=== PATIENT | female | born 1985 | race Two or more races ===

== ENCOUNTER 2024-01-06 10:50 | Emergency (ER) | payer MEDICAID ==
[~2024-01-06] VITALS: Ht 154.9 cm; Wt 80.0 kg
[2024-01-06 11:04] VITALS: BP 137/57; RESP 18; O2SAT 97
[2024-01-06 11:20] LABS: Basophils # (auto) 0.1 10 ^3/uL (0-0.2); Basophils % (auto) 0.9 % (0.0-2.0); Eosinophils # (auto) 0 10 ^3/uL (0-0.8); Eosinophils % (auto) 0.5 % (0.0-7.0); Hematocrit 42.8 % (36.0-46.0); Hemoglobin 14.8 g/dL (12.2-16.2); Lymphocytes # (auto) 1.3 10 ^3/uL (0.4-5.4); Lymphocytes % (auto) 16.8 % (10.0-50.0); Mean Corpuscular Hemoglobin 30.8 pg (28.0-32.0); Mean Corpuscular Hgb Conc. 34.6 g/dL (32.0-36.0); Mean Corpuscular Volume 89.1 fL (80.0-100.0); Monocytes # (auto) 0.6 10 ^3/uL (0-1.3); Monocytes % (auto) 7.2 % (0.0-12.0); Neutrophils # (auto) 5.9 10 ^3/uL (1.6-8.6); Neutrophils % (auto) 74.6 % (37.0-80.0); Platelet Count (auto) 298 10^3/uL (140-450); Red Blood Cells 4.81 10^6/uL (4.0-5.20); Red Cell Distribution Width 13.9 % (11.8-14.3); White Blood Cell 7.9 10^3/uL (4.4-10.8)
[2024-01-06 11:50] LABS: Alanine Aminotransferase 26 U/L (7-40); Albumin 4.7 g/dL (3.2-4.8); Alkaline Phosphatase 67 U/L (46-116); Anion Gap 7 (5-15); Aspartate Aminotransferase 20 U/L (13-40); BUN/Creatinine Ratio 8.7 (10.0-20.0); Blood Urea Nitrogen 6 mg/dL (9-23); Calcium 9.9 mg/dL (8.7-10.4); Carbon Dioxide 23 mmol/L (20-30); Chloride 109 mmol/L (98-107); Glucose 117 mg/dL (74-106); Potassium 3.9 mmol/L (3.5-5.1); Sodium 139 mmol/L (136-145)
[2024-01-06 11:51] LABS: Bilirubin, Total 0.8 mg/dL (0.2-1.0); Total Protein 8.1 g/dL (5.7-8.2)
[2024-01-06 11:52] VITALS: PULSE 73
== END 2024-01-06 12:58 | disposition home or self-care (01) ==
LOC: ER 10:50
DX: R07.89 Other chest pain (principal); R51.9 Headache, unspecified
CPT/HCPCS: 36415; 71046; 80053; 84484; 85025; 85379; 93005

== ENCOUNTER 2024-05-13 09:09 | Emergency (ER) | payer MEDICAID ==
[~2024-05-13] VITALS: Ht 157.5 cm; Wt 79.0 kg
[2024-05-13 09:20] VITALS: BP 131/59; PULSE 80; RESP 18; O2SAT 98
--- NOTE | 2024-05-13 09:41 | ED.PDOC ---
HPI Comments 38 year old female presents to the ED with a chief complaint of chest pain onset 3 days. Patient states she has been experiencing chest pain, numbness/tingling of bilateral upper and lower extremitas, nausea, vomiting, generalized weakness, shortness of breath for the past 3 days. Patient denies any PMHx. No other symptoms or modifying factors present at this time. 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 History Family History Family History: Family hx of DM, Family hx of Cancer, Family hx of HTN Social History Smoker: Non-Smoker Alcohol: Denies ETOH Use Drugs: Marijuana Lives In: Home Constitutional: reports: fatigue, weakness; denies: chills, diaphoresis, fever, malaise, sweats, others EENTM: denies: blurred vision, double vision, ear bleeding, ear discharge, ear drainage, ear pain, ear ringing, eye pain, eye redness, hearing loss, mouth pain, mouth swelling, nasal discharge, nose bleeding, nose congestion, nose pain, photophobia, tearing, throat pain, throat swelling, voice changes, others Respiratory: reports: shortness of breath; denies: cough, hemoptysis, orthopnea, SOB at rest, SOB with excertion, stridor, wheezing, others Cardiovascular: reports: chest pain, palpitations; denies: dizzy spells, diaphoresis, Dyspnea on exertion, edema, irregular heart beat, left arm pain, lightheadedness, PND, syncope, others Gastrointestinal: reports: nausea, vomiting; denies: abdomen distended, abdominal pain, blood streaked bowels, constipated, diarrhea, dysphagia, difficulty swallowing, hematemesis, melena, poor appetite, poor fluid intake, rectal bleeding, rectal pain, others Genitourinary: denies: abnormal vagina bleeding, burning, dyspareunia, dysuria, flank pain, frequency, hematuria, incontinence, pain, , vagina discharge, urgency, others Neurological: reports: numbness; denies: dizziness, fainting, headache, left sided numbness, left sided weakness, paresthesia, pre-existing deficit, right sided numbness, right sided weakness, seizure, speech problems, tingling, tremors, weakness, others Musculoskeletal: denies: back pain, gout, joint pain, joint swelling, muscle pain, muscle stiffness, neck pain, others Integumetry: denies: bruises, change in color, change in hair/nails, dryness, laceration, lesions, lumps, rash, wounds, others Allergic/Immunocompromised: denies: Difficulty Healing, Frequent Infections, Hives, Itching, others Hematologic/Lymphatic: denies: anemia, blood clots, easy bleeding, easy bruising, swollen glands, others Endocrine: denies: excessive hunger, excessive sweating, excessive thirst, excessive urination, flushing, intolerance to cold, intolerance to heat, unexplained weight gain, unexplained weight loss, others Psychiatric: denies: anxiety, bipolar disorder, depression, hopeless, panic disorder, schizophrenia, sleepless, suicidal, others All Other Systems: Reviewed and Negative Physical Exam General Appearance: Mild Distress HEENT: Normal ENT Inspection, Pharynx Normal, TMs Normal Neck: Full Range of Motion, Non-Tender, Normal, Normal Inspection Respiratory: Chest Non-Tender, Lungs Clear, No Accessory Muscle Use, No Respiratory Distress, Normal Breath Sounds Cardiovascular: No Edema, No JVD, No Murmur, No Gallop, Normal Peripheral Pulses, Regular Rate/Rhythm Breast Exam: Deferred Gastrointestinal: No Organomegaly, Non Tender, No Pulsatile Mass, Normal Bowel Sounds, Soft Genitalia: Deferred Pelvic: Deferred Rectal: Deferred Extremities: No calf tenderness, Normal capillary refill, Normal inspection, Normal range of motion, Non-tender, No pedal edema Musculoskeletal : Apperance: Normal Neurologic: Alert, shower attendant II-XII nml as Tested, No Motor Deficits, Normal Affect, Normal Mood, No Sensory Deficits Cerebellar Function: Normal Reflexes: Normal Skin: Dry, Normal Color, Warm Peripheral Pulses: 3+ Radial (R), 3+ Radial (L) Lymphatic: No Adenopathy Was a procedure done? Was a procedure done?: No CP Differential Dx Differential Diagnosis: A-fib, A-Flutter, Angina, Anxiety / Panic Attack, Atrial Dysrhythmia, Electrolyte Disorder X-Ray, Labs, Meds, VS Vital Signs Date Time Temp Pulse Resp B/P (MAP) Pulse Ox O2 Delivery O2 Flow Rate FiO2 05/13/24 09:20 97.5 80 18 131/59 (83) 98 05/13/24 09:14 74 Lab Test 05/13/24 10:21 05/13/24 09:30 Range/Units Troponin I High Sensitivity < 3 L < 3 L </=34 ng/L White Blood Count 7.7 4.4-10.8 10^3/uL Red Blood Count 5.04 4.0-5.20 10^6/uL Hemoglobin 15.6 12.2-16.2 g/dL Hematocrit 44.9 36.0-46.0 % Mean Corpuscular Volume 89.0 80.0-100.0 fL Mean Corpuscular Hemoglobin 30.9 28.0-32.0 pg Mean Corpuscular Hemoglobin Concent 34.7 32.0-36.0 g/dL Red Cell Distribution Width 13.8 11.8-14.3 % Platelet Count 318 140-450 10^3/uL Mean Platelet Volume 8.2 6.9-10.8 fL Neutrophils (%) (Auto) 75.7 37.0-80.0 % Lymphocytes (%) (Auto) 17.1 10.0-50.0 % Monocytes (%) (Auto) 6.2 0.0-12.0 % Eosinophils (%) (Auto) 0.4 0.0-7.0 % Basophils (%) (Auto) 0.6 0.0-2.0 % Neutrophils # (Auto) 5.8 1.6-8.6 10 ^3/uL Lymphocytes # (Auto) 1.3 0.4-5.4 10 ^3/uL Monocytes # (Auto) 0.5 0-1.3 10 ^3/uL Eosinophils # (Auto) 0 0-0.8 10 ^3/uL Basophils # (Auto) 0 0-0.2 10 ^3/uL Nucleated Red Blood Cells 0.1 % Sodium Level 139 136-145 mmol/L Potassium Level 4.1 3.5-5.1 mmol/L Chloride Level 102 98-107 mmol/L Carbon Dioxide Level 28 20-31 mmol/L Anion Gap 9 5-15 Blood Urea Nitrogen 11 9-23 mg/dL Creatinine 0.80 0.550-1.02 mg/dL Glomerular Filtration Rate Calc 97 >90 mL/min BUN/Creatinine Ratio 13.8 10.0-20.0 Serum Glucose 128 H 74-106 mg/dL Calcium Level 10.6 H 8.7-10.4 mg/dL Total Bilirubin 0.9 0.2-1.0 mg/dL Aspartate Amino Transferase (AST) 41 H 13-40 U/L Alanine Aminotransferase (ALT) 72 H 7-40 U/L Alkaline Phosphatase 70 46-116 U/L Total Protein 8.2 5.7-8.2 g/dL Albumin 5.0 H 3.2-4.8 g/dL Patient alert. Anxious. Complaining of chest discomfort. Vitals stable. Cardiac marker within normal limits. EKG within normal limits. No risk factors. No leg swelling. No calf tenderness. No discoloration. Heart rate within normal limits. Saturation pristine on room air. Reviewed her history. Stress induced. Explained to the patient. Was told to follow up with her primary care physician. Was told to come back if there is any problem. Time of 1ST Reevaluation: 09:55 Reevaluation 1ST: Improved Time of 2ND Reevaluation: 12:01 Reevaluation 2ND: Improved Patient Education/Counseling: Diagnosis, Treatment, Prognosis Family Education/Counseling: No Family Present Additional Information I reviewed the following notes from patient's past medical encounters: The following tests were ordered, and results were reviewed by me: CBC, CMP, TROP -x3, EKG -X3 I discussed treatment and results with medical personnel and patient Departure 1 Departure Time of Disposition: 12:02 Impression: Primary Impression: Musculoskeletal chest pain Additional Impression: Stress reaction Disposition: 01 HOME / SELF CARE / HOMELESS Condition: Good Discharged With: Self Critical Care Note Critical Care Time?: No Stability Stability form required: No Heart Score Heart Score: Heart Score Response (Comments) Value History Slightly Suspicious 0 EKG Normal 0 Age <45 0 Risk Factors No known risk factors 0 Troponin Normal limit 0 Total 0 I personally scribed for VARUN OCONNOR MD ([email or web address]) on 05/13/24 at 09:41. Electronically submitted by Ivone Lagos ([email or web address]). I personally scribed for VARUN OCONNOR MD ([email or web address]) on 05/13/24 at 10:52. Electronically submitted by Ivone Lagos ([email or web address]). VARUN OCONNOR MD May 13, 2024 09:41
[2024-05-13 09:43] LABS: Basophils # (auto) 0 10 ^3/uL (0-0.2); Basophils % (auto) 0.6 % (0.0-2.0); Eosinophils # (auto) 0 10 ^3/uL (0-0.8); Eosinophils % (auto) 0.4 % (0.0-7.0); Hematocrit 44.9 % (36.0-46.0); Hemoglobin 15.6 g/dL (12.2-16.2); Lymphocytes # (auto) 1.3 10 ^3/uL (0.4-5.4); Lymphocytes % (auto) 17.1 % (10.0-50.0); Mean Corpuscular Hemoglobin 30.9 pg (28.0-32.0); Mean Corpuscular Hgb Conc. 34.7 g/dL (32.0-36.0); Monocytes # (auto) 0.5 10 ^3/uL (0-1.3); Monocytes % (auto) 6.2 % (0.0-12.0); Neutrophils # (auto) 5.8 10 ^3/uL (1.6-8.6); Neutrophils % (auto) 75.7 % (37.0-80.0); Nucleated Red Blood Cells % 0.1 %; Platelet Count (auto) 318 10^3/uL (140-450); Red Blood Cells 5.04 10^6/uL (4.0-5.20); Red Cell Distribution Width 13.8 % (11.8-14.3); White Blood Cell 7.7 10^3/uL (4.4-10.8)
[2024-05-13 09:58] LABS: Alkaline Phosphatase 70 U/L (46-116); Anion Gap 9 (5-15); BUN/Creatinine Ratio 13.8 (10.0-20.0); Bilirubin, Total 0.9 mg/dL (0.2-1.0); Blood Urea Nitrogen 11 mg/dL (9-23); Carbon Dioxide 28 mmol/L (20-31); Chloride 102 mmol/L (98-107); Potassium 4.1 mmol/L (3.5-5.1); Sodium 139 mmol/L (136-145); Total Protein 8.2 g/dL (5.7-8.2)
[2024-05-13 10:05] LABS: Alanine Aminotransferase 72 U/L (7-40); Aspartate Aminotransferase 41 U/L (13-40); Calcium 10.6 mg/dL (8.7-10.4); Glucose 128 mg/dL (74-106)
--- NOTE | 2024-05-14 14:12 | ECG ---
[facility] Test Date: 2024-05-13 Test Time: 09:14:46 Pat Name: MICHEL BERNARDO Department: ER Room: Gender: F [employer]: GP : 1985 Requested By: VARUN OCONNOR Order Number: [id number] Reading MD: Steven Amaya Measurements Intervals [place] Rate: 74 P: 31 VA: 129 QRS: 56 QRSD: 95 T: 47 QT: 386 QTc: 429 Interpretive Statements Sinus rhythm RSR' in V1 or V2, right VCD or RVH Baseline wander in lead(s) V4 Electronically Signed On 05-15-2024 18:18:32 PST by Steven Amaya Please click the below link to view image of tracing.
== END 2024-05-13 12:03 | disposition home or self-care (01) ==
LOC: ER 09:09
DX: F43.9 Reaction to severe stress, unspecified (principal); R07.89 Other chest pain; F12.90 Cannabis use, unspecified, uncomplicated; Z98.890 Other specified postprocedural states
CPT/HCPCS: 36415; 80053; 84484; 85025; 93005

== ENCOUNTER 2024-08-08 09:35 | Inpatient (IN) | payer MEDICAID ==
[~2024-08-08] VITALS: Ht 157.5 cm; Wt 81.8 kg
[2024-08-08 10:15] LABS: Basophils # (auto) 0 10 ^3/uL (0-0.2); Basophils % (auto) 0.7 % (0.0-2.0); Eosinophils # (auto) 0.1 10 ^3/uL (0-0.8); Eosinophils % (auto) 1.7 % (0.0-7.0); Hematocrit 46.2 % (36.0-46.0); Lymphocytes # (auto) 1.4 10 ^3/uL (0.4-5.4); Lymphocytes % (auto) 19.2 % (10.0-50.0); Mean Corpuscular Hemoglobin 31.1 pg (28.0-32.0); Mean Corpuscular Hgb Conc. 34.6 g/dL (32.0-36.0); Mean Corpuscular Volume 89.9 fL (80.0-100.0); Monocytes # (auto) 0.5 10 ^3/uL (0-1.3); Monocytes % (auto) 7.5 % (0.0-12.0); Neutrophils # (auto) 5.1 10 ^3/uL (1.6-8.6); Neutrophils % (auto) 70.9 % (37.0-80.0); Nucleated Red Blood Cells % 0.1 %; Platelet Count (auto) 317 10^3/uL (140-450); Red Blood Cells 5.14 10^6/uL (4.0-5.20); Red Cell Distribution Width 13.4 % (11.8-14.3); White Blood Cell 7.2 10^3/uL (4.4-10.8)
[2024-08-08] MEDS: KETOROLAC TROMETH 30 MG/ML 1ML VIAL IV ONE (10:15)
[2024-08-08 10:24] LABS: Chloride 101 mmol/L (98-107); Sodium 138 mmol/L (136-145)
[2024-08-08 10:25] LABS: Anion Gap 12 (5-15); Carbon Dioxide 25 mmol/L (20-31)
[2024-08-08 10:26] LABS: Calcium 10.8 mg/dL (8.7-10.4)
--- NOTE | 2024-08-08 10:27 | DVH ---
CHEST RADIOGRAPH Indication: chest pain Technique: Single frontal view of the chest was obtained COMPARISON: None FINDINGS: Lines and Tubes: None Lungs: Clear Pleura: No effusion. No pneumothorax. Cardiomediastinal contours: Unremarkable Bones: Unremarkable IMPRESSION: No acute disease.
[2024-08-08 10:29] VITALS: PULSE 96; RESP 20; O2SAT 97
[2024-08-08 10:29] LABS: Urine Bacteria None Seen /hpf (None Seen)
[2024-08-08 10:31] LABS: BUN/Creatinine Ratio 10.1 (10.0-20.0)
[2024-08-08] MEDS: SODIUM CHLORIDE 0.9% 1,000 ML IV ONE ×2 (10:32→22:50)
[2024-08-08] MEDS: ACETAMINOPHEN 325 MG TAB PO ONE (10:33)
[2024-08-08 10:34] LABS: Blood Urea Nitrogen 7 mg/dL (9-23); Glucose 115 mg/dL (74-106)
[2024-08-08] MEDS: FAMOTIDINE (10MG/ML) 2ML VL IV ONE (10:44)
[2024-08-08] MEDS: ONDANSETRON HCL 4 MG/2 ML VIAL IV ONE (10:44)
--- NOTE | 2024-08-08 10:45 | ED.PDOC ---
HPI Comments 39Y F with PMHx tubal ligation and presents to ED with chief complaint chest pain x3days. Pt states chest pain is substernal and radiates to bilateral arms. Additional symptoms include bilateral arm tingling/numbness, headache, back pain, nausea, and decreased appetite. Pt states back pain was relieved by massage. No other symptoms/history reported. 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 History Family History Family History: Family hx of DM, Family hx of Cancer, Family hx of HTN Social History Smoker: Non-Smoker Alcohol: Denies ETOH Use Drugs: Marijuana Lives In: Home Constitutional: denies: chills, diaphoresis, fatigue, fever, malaise, sweats, weakness, others EENTM: denies: blurred vision, double vision, ear bleeding, ear discharge, ear drainage, ear pain, ear ringing, eye pain, eye redness, hearing loss, mouth pain, mouth swelling, nasal discharge, nose bleeding, nose congestion, nose pain, photophobia, tearing, throat pain, throat swelling, voice changes, others Respiratory: denies: cough, hemoptysis, orthopnea, SOB at rest, shortness of breath, SOB with excertion, stridor, wheezing, others Cardiovascular: reports: chest pain, left arm pain; denies: dizzy spells, diaphoresis, Dyspnea on exertion, edema, irregular heart beat, lightheadedness, palpitations, PND, syncope, others Gastrointestinal: reports: nausea, poor appetite; denies: abdomen distended, abdominal pain, blood streaked bowels, constipated, diarrhea, dysphagia, difficulty swallowing, hematemesis, melena, poor fluid intake, rectal bleeding, rectal pain, vomiting, others Genitourinary: denies: abnormal vagina bleeding, burning, dyspareunia, dysuria, flank pain, frequency, hematuria, incontinence, pain, , vagina disc harge, urgency, others Neurological: reports: headache, numbness (bilateral arms), tingling (bilateral arms); denies: dizziness, fainting, left sided numbness, left sided weakness, paresthesia, pre-existing deficit, right sided numbness, right sided weakness, seizure, speech problems, tremors, weakness, others Musculoskeletal: reports: back pain; denies: gout, joint pain, joint swelling, muscle pain, muscle stiffness, neck pain, others Integumetry: denies: bruises, change in color, change in hair/nails, dryness, laceration, lesions, lumps, rash, wounds, others Allergic/Immunocompromised: denies: Difficulty Healing, Frequent Infections, Hives, Itching, others Hematologic/Lymphatic: denies: anemia, blood clots, easy bleeding, easy bruising, swollen glands, others Endocrine: denies: excessive hunger, excessive sweating, excessive thirst, excessive urination, flushing, intolerance to cold, intolerance to heat, unexplained weight gain, unexplained weight loss, others Psychiatric: denies: anxiety, bipolar disorder, depression, hopeless, panic disorder, schizophrenia, sleepless, suicidal, others All Other Systems: Reviewed and Negative Physical Exam General Appearance: No Apparent Distress, Normal HEENT: Normal ENT Inspection, Pharynx Normal, TMs Normal Neck: Full Range of Motion, Non-Tender, Normal, Normal Inspection Respiratory: Chest Non-Tender, Lungs Clear, No Accessory Muscle Use, No Respiratory Distress, Normal Breath Sounds Cardiovascular: No Edema, No JVD, No Murmur, No Gallop, Normal Peripheral Pulses, Regular Rate/Rhythm Breast Exam: Deferred Gastrointestinal: No Organomegaly, Non Tender, No Pulsatile Mass, Normal Bowel Sounds, Soft Genitalia: Deferred Pelvic: Deferred Rectal: Deferred Extremities: No calf tenderness, Normal capillary refill, Normal inspection, Normal range of motion, Non-tender, No pedal edema Musculoskeletal : Apperance: Normal Neurologic: Alert, relations mgr II-XII nml as Tested, No Motor Deficits, Normal Affect, Normal Mood, No Sensory Deficits Cerebellar Function: NOT DONE Reflexes: NOT DONE Skin: Dry, Normal Color, Warm Lymphatic: No Adenopathy Was a procedure done? Was a procedure done?: No CP Differential Dx Differential Diagnosis: Anxiety / Panic Attack X-Ray, Labs, Meds, VS Vital Signs Date Time Temp Pulse Resp B/P (MAP) Pulse Ox O2 Delivery O2 Flow Rate FiO2 08/08/24 11:19 97.8 08/08/24 10:36 78 08/08/24 10:33 98.1 08/08/24 10:29 96 20 97 Room Air* 0 21 08/08/24 10:21 98.3 96 20 152/91 (111) 99 98.3 08/08/24 09:41 78 08/08/24 09:36 97.5 77 18 102/51 (68) 97 97.5 Lab Test 08/08/24 10:42 08/08/24 10:10 08/08/24 09:40 Range/Units Troponin I High Sensitivity < 3 L < 3 L </=34 ng/L Urine Color Light-yellow Yellow Urine Clarity Turbid H Clear Urine pH 6.0 5.0-9.0 Urine Specific [place] 1.012 1.001-1.035 Urine Protein Negative Negative Urine Ketones 4+ H Negative Urine Blood Negative Negative /uL Urine Nitrite Negative Negative Urine Bilirubin Negative Negative Urine Urobilinogen Normal Negative mg/dL Urine Leukocyte Esterase Negative Negative /uL Urine RBC 1 0 - 4 /hpf Urine Microscopic WBC 1 0-5 /HPF Urine Squamous Epithelial Cells Few <5 /hpf Urine Bacteria None seen None Seen /hpf Urine Mucus Few None Seen Urine Glucose Normal Normal mg/dL White Blood Count 7.2 4.4-10.8 10^3/uL Red Blood Count 5.14 4.0-5.20 10^6/uL Hemoglobin 16.0 12.2-16.2 g/dL Hematocrit 46.2 H 36.0-46.0 % Mean Corpuscular Volume 89.9 80.0-100.0 fL Mean Corpuscular Hemoglobin 31.1 28.0-32.0 pg Mean Corpuscular Hemoglobin Concent 34.6 32.0-36.0 g/dL Red Cell Distribution Width 13.4 11.8-14.3 % Platelet Count 317 140-450 10^3/uL Mean Platelet Volume 8.5 6.9-10.8 fL Neutrophils (%) (Auto) 70.9 37.0-80.0 % Lymphocytes (%) (Auto) 19.2 10.0-50.0 % Monocytes (%) (Auto) 7.5 0.0-12.0 % Eosinophils (%) (Auto) 1.7 0.0-7.0 % Basophils (%) (Auto) 0.7 0.0-2.0 % Neutrophils # (Auto) 5.1 1.6-8.6 10 ^3/uL Lymphocytes # (Auto) 1.4 0.4-5.4 10 ^3/uL Monocytes # (Auto) 0.5 0-1.3 10 ^3/uL Eosinophils # (Auto) 0.1 0-0.8 10 ^3/uL Basophils # (Auto) 0 0-0.2 10 ^3/uL Nucleated Red Blood Cells 0.1 % Sodium Level 138 136-145 mmol/L Potassium Level 4.0 3.5-5.1 mmol/L Chloride Level 101 98-107 mmol/L Carbon Dioxide Level 25 20-31 mmol/L Anion Gap 12 5-15 Blood Urea Nitrogen 7 L 9-23 mg/dL Creatinine 0.69 0.550-1.02 mg/dL Glomerular Filtration Rate Calc 114 >90 mL/min BUN/Creatinine Ratio 10.1 10.0-20.0 Serum Glucose 115 H 74-106 mg/dL Calcium Level 10.8 H 8.7-10.4 mg/dL Current Medications Medications (Trade) Dose Ordered Sig/Renetta Route Start Time Stop Time Status Last Admin Ondansetron HCl (Zofran) 4 mg ONCE ONCE IV 08/08/24 10:15 08/08/24 10:16 DC 08/08/24 10:44 Acetaminophen (Tylenol Tablet) 650 mg ONCE ONCE PO 08/08/24 10:15 08/08/24 10:16 DC 08/08/24 10:33 Sodium Chloride 1,000 ml @ 1,000 mls/hr Q1H ONCE IV 08/08/24 10:15 08/08/24 11:14 DC 08/08/24 10:32 Famotidine (Pepcid Injection) 20 mg ONCE ONCE IV 08/08/24 10:15 08/08/24 10:16 DC 08/08/24 10:[address] [address] Ph: [phone] DIAGNOSTIC IMAGING Diagnostic Imaging Report : [id number] Signed PATIENT: MICHEL JONESACCT: [id number] UNIT: [id number] : 1985 LOC: ER ROOM / BED: / AGE / SEX: 39 / F ADM STATUS: REG ER SERVICE 1001 ORDERING PHYSICIAN: KATHE MIJARES MD PROCEDURE(s): CXRP - CHEST PORTABLE REASON: chest pain ORDER NUMBER(s): [id number], ACCESSION NUMBER(s): [id number] CHEST RADIOGRAPH Indication: chest pain Technique: Single frontal view of the chest was obtained COMPARISON: None FINDINGS: Lines and Tubes: None Lungs: Clear Pleura: No effusion. No pneumothorax. Cardiomediastinal contours: Unremarkable Bones: Unremarkable IMPRESSION: No acute disease. ATED BY: KEEGAN BETANCOURT MD DICTATED DATE/TIME: 08/08/24 1025 SIGNED BY: KEEGAN BETANCOURT MD SIGNED DATE/TIME: 08/08/24 1025 CC: Time of 1ST Reevaluation: 10:28 Reevaluation 1ST: Unchanged Patient Education/Counseling: Diagnosis, Treatment Family Education/Counseling: No Family Present Departure 1 Departure Time of Disposition: 13:34 (Patient presented with chest pain that was concerning for possible STEMI, ACS, PE, Pneumonia, Muscle Strain, COPD, Dissection. Data: 1. I ordered and reviewed the result of at least 3 labs including a CBC, BMP, and Troponin. 2. I independently interpreted the following tests: EKG which shows sinus arrhythmia and Chest X-ray which shows benign chest.Risk:This patient has a high risk of morbidity due to further diagnostic testing or treatment and may suffer from an acute cardiac or respiratory disorder. Workup reveals concern for ACS and patient should be admitted for further workup and possible expert consultation. ) Impression: Primary Impression: Acute chest pain Additional Impression: Shortness of breath Disposition: ADMITTED INPATIENT Admit to: Med Surg Condition: Serious Critical Care Note Critical Care Time?: Yes Critical care comment: Acute chest pain Authorized and Performed by: Kathe Mijares MD Total critical care time: Approximately 38 minutes Due to a high probability of clinically significant, life threatening deterioration, the patient required my highest level of preparedness to intervene emergently and I personally spent this critical care time directly and personally managing the patient. This critical care time included obtaining a history; examining the patient; pulse oximetry; ordering and review of studies; arranging urgent treatment with development of a management plan; evaluation of patient's response to treatment; frequent reassessment; and, discussions with other providers. This critical care time was performed to assess and manage the high probability of imminent, life-threatening deterioration that could result in multi-organ failure. It was exclusive of separately billable procedures and treating other patients and teaching time. Please see my other sections and the rest of the note for further information on patient assessment and treatment. Stability Stability form required: No Heart Score Heart Score: Heart Score Response (Comments) Value History Slightly Suspicious 0 EKG Normal 0 Age <45 0 Risk Factors No known risk factors 0 Troponin Normal limit 0 Total 0 I personally scribed for KATHE MIJARES MD ([email or web address] on 08/08/24 at 10:45. Electronically submitted by Maribell Magana ([email or web address]). I personally scribed for KATHE MIJARES MD ([email or web address]) on 08/08/24 at 11:24. Electronically submitted by Maribell Magana ([employer]). KATHE MIJARES MD Aug 08, 2024 10:45
[2024-08-08 10:46] LABS: Urine Blood Negative /uL (Negative); Urine Clarity Turbid (Clear); Urine Color Light-Yellow (Yellow); Urine Mucus FEW (None Seen); Urine Protein, UAD Negative (Negative); Urine Specific Gravity 1.012 (1.001-1.035); Urine Squamous Epithelial Cell FEW /hpf (<5); Urine Urobilinogen Normal (Negative); Urine WBC 1 /HPF (0-5)
[2024-08-08] MEDS ORDERED: DOCUSATE SOD 100 MG CAP PO PRN (16:45)
[2024-08-08] MEDS ORDERED: MORPHINE SULFATE INJ 2 MG/ml SYRG IV PRN (16:45)
[2024-08-08] MEDS ORDERED: NITROGLYCERIN 0.4 MG SL TAB SL PRN (16:45)
[2024-08-08] MEDS ORDERED: ONDANSETRON HCL 4 MG/2 ML VIAL IV PRN (16:45)
--- NOTE | 2024-08-08 16:56 | DVHHP2 ---
History of Present Illness Reason for Visit: Chest Pain History of Present Illness Nevaeh Galeana is a 39-year-old female who denies any significant past medical history that came in for chest pain. Patient states that she has been experiencing intermittent sharp chest pain for the last 3 days with associated bilateral upper extremity numbness and tingling. She also states she has been experiencing palpitations with associated shortness of breath. She states her symptoms have continued and worsened so she came to the hospital. Past Surgical History: (x 4), Tubal Ligation Smoke: <1 pack per day (Vape) ALCOHOL: none Drugs: None Lives: with Family Domestic Violence: Neg Review of Systems Constitutional: No: Fever, Chills, Sweats, Weakness, Malaise, Other Eyes: No: Pain, Vision change, Conjunctivae inflammation, Eyelid inflammation, Other, Redness ENT: No: Ear pain, Ear discharge, Nose pain, Nose discharge, Nose congestion, Mouth pain, Mouth swelling, Throat pain, Throat swelling, Other Respiratory: Shortness of breath; No: Cough, Dry, SOB with excertion, Wheezing, Hemoptysis, Pleuritic Pain, Sputum, Wheezing, Other Cardiovascular: Chest Pain (sharp pain), Palpitations; No: Orthopnea, Paroxysmal Noc. Dyspnea, Edema, Lt Headedness, Other Gastrointestinal: No: Nausea, Vomiting, Abdominal Pain, Diarrhea, Constipation, Melena, Hematochezia, Other Genitourinary: No Dysuria, No Frequency, No Incontinence, No Hematuria, No Retention, No Other Musculoskeletal: arm pain (numbness/tingling); No: other, neck pain, shoulder pain, back pain, hand pain, leg pain, foot pain Skin: No: Rash, Lesions, Jaundice, Bruising, Other Neurological: No: Weakness, Numbness, Incoordination, Change in speech, Confusion, Seizures, Other Allergies: Coded Allergies: NO KNOWN ALLERGIES (Unverified , 05/13/24) Exam Vital Signs Vital Signs Date Time Temp Pulse Resp B/P (MAP) Pulse Ox O2 Delivery O2 Flow Rate FiO2 08/08/24 14:30 97.8 82 18 108/58 (75) 99 97.8 08/08/24 10:29 Room Air* 0 21 General Appearance: Alert, Oriented X3, Cooperative HEENT: Atraumatic, PERRLA, EOMI, Mucous membr. moist/pink Respiratory: Clear to auscultation, Normal air movement Cardiovascular: Regular rate, Normal S1, Normal S2, No murmurs Abdominal: Normal bowel sounds, Soft, No tenderness, No hepatospenomegaly Extremities: No clubbing, No cyanosis, No edema, Normal pulses, No tenderness/swelling Skin: No rashes, No breakdown, No significant lesion Neuro: Normal gait, Normal speech, Strength at 5/5 X4 ext Psych/Mental Status: Mental status NL, Mood NL Labs/Xrays Labs Test 08/08/24 10:42 08/08/24 10:10 08/08/24 09:40 Range/Units Troponin I High Sensitivity < 3 L </=34 ng/L Urine Color Light-yellow Yellow Urine Clarity Turbid H Clear Urine pH 6.0 5.0-9.0 Urine Specific [place] 1.012 1.001-1.035 Urine Protein Negative Negative Urine Ketones 4+ H Negative Urine Blood Negative Negative /uL Urine Nitrite Negative Negative Urine Bilirubin Negative Negative Urine Urobilinogen Normal Negative mg/dL Urine Leukocyte Esterase Negative Negative /uL Urine RBC 1 0 - 4 /hpf Urine Microscopic WBC 1 0-5 /HPF Urine Squamous Epithelial Cells Few <5 /hpf Urine Bacteria None seen None Seen /hpf Urine Mucus Few None Seen Urine Glucose Normal Normal mg/dL White Blood Count 7.2 4.4-10.8 10^3/uL Red Blood Count 5.14 4.0-5.20 10^6/uL Hemoglobin 16.0 12.2-16.2 g/dL Hematocrit 46.2 H 36.0-46.0 % Mean Corpuscular Volume 89.9 80.0-100.0 fL Mean Corpuscular Hemoglobin 31.1 28.0-32.0 pg Mean Corpuscular Hemoglobin Concent 34.6 32.0-36.0 g/dL Red Cell Distribution Width 13.4 11.8-14.3 % Platelet Count 317 140-450 10^3/uL Mean Platelet Volume 8.5 6.9-10.8 fL Neutrophils (%) (Auto) 70.9 37.0-80.0 % Lymphocytes (%) (Auto) 19.2 10.0-50.0 % Monocytes (%) (Auto) 7.5 0.0-12.0 % Eosinophils (%) (Auto) 1.7 0.0-7.0 % Basophils (%) (Auto) 0.7 0.0-2.0 % Neutrophils # (Auto) 5.1 1.6-8.6 10 ^3/uL Lymphocytes # (Auto) 1.4 0.4-5.4 10 ^3/uL Monocytes # (Auto) 0.5 0-1.3 10 ^3/uL Eosinophils # (Auto) 0.1 0-0.8 10 ^3/uL Basophils # (Auto) 0 0-0.2 10 ^3/uL Nucleated Red Blood Cells 0.1 % Sodium Level 138 136-145 mmol/L Potassium Level 4.0 3.5-5.1 mmol/L Chloride Level 101 98-107 mmol/L Carbon Dioxide Level 25 20-31 mmol/L Anion Gap 12 5-15 Blood Urea Nitrogen 7 L 9-23 mg/dL Creatinine 0.69 0.550-1.02 mg/dL Glomerular Filtration Rate Calc 114 >90 mL/min BUN/Creatinine Ratio 10.1 10.0-20.0 Serum Glucose 115 H 74-106 mg/dL Calcium Level 10.8 H 8.7-10.4 mg/dL CHEST RADIOGRAPH FINDINGS: Lines and Tubes: None Lungs: Clear Pleura: No effusion. No pneumothorax. Cardiomediastinal contours: Unremarkable Bones: Unremarkable IMPRESSION: No acute disease. Assessment/Plan Assessment/Plan Assessment: Acute chest pain, Palpitations, R/O ACS, Plan: Admit to Tele, Cardiology consult, TSH, A1c, Lipid panel, ASA and Statin, IV hydration, ECHO, Plan discussed with: Patient My Orders Orders - STANLEY GROVES FIELD MAP TECHNICIAN Procedure Category Date Status Time * Cardiology Consult CONS 08/08/24 Transmitted 16:41 Admit ADMIT 08/08/24 Transmitted 16:41 Code Status CODE 08/08/24 Transmitted 16:41 Hydrocodone-Acet PHA 08/08/24 Transmitted 5/325mg Tab ([place] 16:45 Ondansetron Hcl PHA 08/08/24 Transmitted (Zofran) 16:45 Docusate Sodium PHA 08/08/24 Transmitted Capsule (Colace 16:45 Complete Blood Count LAB 08/09/24 Verified 04:00 Comprehensive LAB 08/09/24 Verified Metabolic Panel 04:00 Condition: Serious [facility]OD[facility]ICK 08/08/24 Transmitted 16:41 Acetaminophen Tablet PHA 08/08/24 Transmitted (Tylenol Tablet) 16:45 Nitroglycerin [facility] 08/08/24 Transmitted Sublingual (Ntrostat 16:45 Morphine Sulfate [facility] 08/08/24 Transmitted Injection 16:45 Stat Ekg For Chest [facility] 08/08/24 Verified Pain 16:41 Notify Md Of Changes [facility] 08/08/24 Verified From Base 16:41 Seed Analysis Laboratory Assistant For [facility] 08/08/24 Verified 24 Hours 16:41 Emergency Dysrhythmia [facility] 08/08/24 Verified Protocol 16:41 Rhythm Strips Once [facility] 08/08/24 Verified Every Shift 16:41 Oxygen By Nasal 08/08/24 Verified Cannula 16:41 Date of Service: Aug 08, 2024 Billing Provider: STANLEY GROVES Common Visit Codes: [id number] INP/OBS CARE (MOD) STANLEY GROVES Aug 08, 2024 16:56
--- NOTE | 2024-08-08 17:22 | DVHINCON2 ---
ALEJANDRA LYLE [facility] 08/08/24 1721: Date Seen: Aug 08, 2024 Referring Physician MD Izabela Reason for Consultation Chest pain, palpitations History of Present Illness This is a 39-year-old female who presented to the emergency room with a chief complaint of chest pain x3 days. Describes her chest pain as substernal, sharp in nature, radiating to bilateral upper extremities as a tingling/numbness sensation, constant, non provoked, and associated with myalgia the right flank area and some nausea. Per patient she self-medicated with ASA 81 mg q.d. for two days with no relief of symptoms. She underwent multiple 12 lead electrocardiograms x2 revealing a normal sinus rhythm. Serial troponin levels are negative. The patient endorses a recent diagnosis of anxiety without pharmaceutical therapy. Medical history includes anxiety, BTL, C-sections x4, cannabinoid use, and obesity. Past Medical History Past medical history reviewed. No other significant than mentioned above. Past Surgical History C-sections x4 Family History Family history reviewed. Denies for cardiovascular disease. Social History Denies the use of alcohol, or tobacco use. Admits to cannabinoid use. Allergies: Coded Allergies: NO KNOWN ALLERGIES (Unverified , 05/13/24) Home Meds No Active Prescriptions or Reported Meds Home Meds Denies any Rx home medications. Current Medications Current Medications Medications (Trade) Dose Ordered Sig/Renetta Route PRN Reason Start Time Stop Time Status Last Admin Acetaminophen/ Hydrocodone Bitart ([place] 5/325MG Tab) 1 tab Q4HP PRN PO MODERATE PAIN (4-6 PAIN SCALE) 08/08/24 16:45 Ondansetron HCl (Zofran) 4 mg Q4HP PRN IV NAUSEA / VOMITING 08/08/24 16:45 Docusate Sodium (Colace Capsule) 100 mg BIDPRN PRN PO FOR CONSTIPATION 08/08/24 16:45 Acetaminophen (Tylenol Tablet) 650 mg Q6HP PRN PO PAIN SCALE 1-3 OR TEMP>100.4 08/08/24 16:45 Nitroglycerin (Ntrostat Sublingual) 0.4 mg Q5MINP PRN SL FOR CHEST PAIN 08/08/24 16:45 Morphine Sulfate 2 mg Q30M PRN IV FOR CHEST PAIN 08/08/24 16:45 Review of Systems Constitutional: No symptom reported Ears, Nose, & Throat: No symptom reported Eyes: No symptom reported Neurological: No symptoms reported Pulmonary/Respiratory: No symptom reported Cardiovascular: Chest pain Gastrointestinal: Nausea Genitourinary: No symptom reported Musculoskeletal: Right flank pain Skin: No symptom reported Psychiatric: No symptom reported Endocrine: No symptom reported Hemotologic/Lymphatic: No symptom reported Vital Signs Vital Signs Date Time Temp Pulse Resp B/P (MAP) Pulse Ox O2 Delivery O2 Flow Rate FiO2 08/08/24 14:30 97.8 82 18 108/58 (75) 99 97.8 08/08/24 10:29 Room Air* 0 21 Physical Exam General Appearance: Cooperative. Well developed. Well nourished. In no acute distress Head Exam: Normal inspection Neck Exam: Normal inspection. Non-tender. Normal alignment Pulmonary/Respiratory: Chest non-tender. Clear bilateral breath sounds Cardiovascular/Chest: Regular rate and rhythm. S1, S2. NSR. No murmurs. No JVD. Peripheral Pulses: 2+ Radial (R). 2+ Radial (L). 2+ Pedal (R). 2+ Pedal (L) Abdominal Exam: Normal bowel sounds. Soft. Nontender. No hepatospenomegaly. No masses Ankle Exam: Negative ankle edema Lower extremities: Negative lower extremity edema Neuro/Mental Status: A&O x4. Coherent Thoughts/Psych: Normal thought pattern. Anxious Appearance: In no acute distress Skin Exam: Normal inspection. Normal color. Warm. Dry Labs/Diagnostic Data Labs Test 08/08/24 10:42 08/08/24 10:10 08/08/24 09:40 Range/Units Troponin I High Sensitivity < 3 L </=34 ng/L Urine Color Light-yellow Yellow Urine Clarity Turbid H Clear Urine pH 6.0 5.0-9.0 Urine Specific [place] 1.012 1.001-1.035 Urine Protein Negative Negative Urine Ketones 4+ H Negative Urine Blood Negative Negative /uL Urine Nitrite Negative Negative Urine Bilirubin Negative Negative Urine Urobilinogen Normal Negative mg/dL Urine Leukocyte Esterase Negative Negative /uL Urine RBC 1 0 - 4 /hpf Urine Microscopic WBC 1 0-5 /HPF Urine Squamous Epithelial Cells Few <5 /hpf Urine Bacteria None seen None Seen /hpf Urine Mucus Few None Seen Urine Glucose Normal Normal mg/dL White Blood Count 7.2 4.4-10.8 10^3/uL Red Blood Count 5.14 4.0-5.20 10^6/uL Hemoglobin 16.0 12.2-16.2 g/dL Hematocrit 46.2 H 36.0-46.0 % Mean Corpuscular Volume 89.9 80.0-100.0 fL Mean Corpuscular Hemoglobin 31.1 28.0-32.0 pg Mean Corpuscular Hemoglobin Concent 34.6 32.0-36.0 g/dL Red Cell Distribution Width 13.4 11.8-14.3 % Platelet Count 317 140-450 10^3/uL Mean Platelet Volume 8.5 6.9-10.8 fL Neutrophils (%) (Auto) 70.9 37.0-80.0 % Lymphocytes (%) (Auto) 19.2 10.0-50.0 % Monocytes (%) (Auto) 7.5 0.0-12.0 % Eosinophils (%) (Auto) 1.7 0.0-7.0 % Basophils (%) (Auto) 0.7 0.0-2.0 % Neutrophils # (Auto) 5.1 1.6-8.6 10 ^3/uL Lymphocytes # (Auto) 1.4 0.4-5.4 10 ^3/uL Monocytes # (Auto) 0.5 0-1.3 10 ^3/uL Eosinophils # (Auto) 0.1 0-0.8 10 ^3/uL Basophils # (Auto) 0 0-0.2 10 ^3/uL Nucleated Red Blood Cells 0.1 % Sodium Level 138 136-145 mmol/L Potassium Level 4.0 3.5-5.1 mmol/L Chloride Level 101 98-107 mmol/L Carbon Dioxide Level 25 20-31 mmol/L Anion Gap 12 5-15 Blood Urea Nitrogen 7 L 9-23 mg/dL Creatinine 0.69 0.550-1.02 mg/dL Glomerular Filtration Rate Calc 114 >90 mL/min BUN/Creatinine Ratio 10.1 10.0-20.0 Serum Glucose 115 H 74-106 mg/dL Calcium Level 10.8 H 8.7-10.4 mg/dL Assessment Noncardiac chest pain Rule out structural heart disease Anxiety Cannabinoid use Obesity Plan/Recommendation (Dr. Castellanos) The patient with noncardiac chest pain has been scheduled for a transthoracic echocardiogram to evaluate cardiac function. She presents with a heart score of one placing her at low risk for major cardiac events. In the setting of an unremarkable echocardiogram, there is no further cardiac workup indicated at this time. Consider anxiolytic therapy. Thank you for allowing us to participate in this patient's care. Please call if you have any questions or concerns. This medical document was created using an electronic medical record system with voice recognition software and computerized dictation system. Although this document has been carefully reviewed, there might still be some phonetic and typographical errors. Occasional wrong-word or ``sound-alike substitutions may have occurred due to the inherent limitations of voice recognition software. These areas are purely typographical due to imperfections of the software programs and do not reflect any compromise in the patient's medical care. Please read the chart carefully and recognize, using context, where these substitutions have occurred. Plan discussed with: Patient, Other NYHA Physical activity limitations: NA Date of Service: Aug 08, 2024 Billing Provider: ALEJANDRA LYLE Cardiology Common Codes: [id number] INP/OBS CARE (High) BEVERLEY SCHAFER DO 08/08/24 2332: Date Seen: Aug 08, 2024 Allergies: Coded Allergies: NO KNOWN ALLERGIES (Unverified , 05/13/24) Home Meds No Active Prescriptions or Reported Meds Plan/Recommendation I agree with Assessment and Plan as outlined by Alejandra Lyle NP. Plan discussed with: Patient Date of Service: Aug 08, 2024 Billing Provider: BEVERLEY SCHAFER DO Cardiology Common Codes: [id number] INP/OBS CARE (High) ALEJANDRA LYLE Aug 08, 2024 17:21 BEVERLEY SCHAFER DO Aug 08, 2024 23:32
[2024-08-08] MEDS: ASPirin 81 mg TAB PO ONE (18:04)
--- NOTE | 2024-08-08 19:03 | ECG ---
[facility] Test Date: 2024-08-08 Test Time: 10:36:32 Pat Name: MICHEL BERNARDO Department: ED Room: [address] [place] [address] Gender: F [employer] S[employer] Developer: grey : 1985 Requested By: KATHE PATIÑO Order Number: [id number] Reading MD: Steven Amaya Measurements Intervals [place] Rate: 78 P: 66 [place]: 135 QRS: 57 QRSD: 93 T: 56 QT: 356 QTc: 406 Interpretive Statements Sinus rhythm RSR' in V1 or V2, right VCD or RVH Electronically Signed On 08-08-2024 22:15:39 PDT by Steven Amaya Please click the below link to view image of tracing.
[2024-08-08 20:00] VITALS: BP 114/46; PULSE 70; RESP 17; TEMP 98.5; O2SAT 99
[2024-08-08 20:14] VITALS: BP 102/66; PULSE 67; RESP 16; TEMP 97.8; O2SAT 94
[2024-08-08] MEDS: ATORVASTATIN 20 MG TAB PO SCH (22:41)
[2024-08-08] MEDS: HYDROcodone-ACET 5/325MG TAB PO PRN (22:42)
[2024-08-09] VITALS (8 sets, daily range): BP systolic 95–121; BP diastolic 55–65; PULSE 60–106; RESP 14–17; TEMP 97.6–98.9; O2SAT 95–100
[2024-08-09 05:43] LABS: Basophils # (auto) 0.1 10 ^3/uL (0-0.2); Basophils % (auto) 1.7 % (0.0-2.0); Eosinophils # (auto) 0.4 10 ^3/uL (0-0.8); Hematocrit 37.2 % (36.0-46.0); Hemoglobin 12.8 g/dL (12.2-16.2); Lymphocytes # (auto) 1.7 10 ^3/uL (0.4-5.4); Lymphocytes % (auto) 26.3 % (10.0-50.0); Mean Corpuscular Hemoglobin 31.1 pg (28.0-32.0); Mean Corpuscular Hgb Conc. 34.5 g/dL (32.0-36.0); Mean Corpuscular Volume 90.1 fL (80.0-100.0); Monocytes # (auto) 0.5 10 ^3/uL (0-1.3); Monocytes % (auto) 8.6 % (0.0-12.0); Neutrophils # (auto) 3.6 10 ^3/uL (1.6-8.6); Neutrophils % (auto) 57.4 % (37.0-80.0); Nucleated Red Blood Cells % 0.1 %; Platelet Count (auto) 232 10^3/uL (140-450); Red Blood Cells 4.13 10^6/uL (4.0-5.20); Red Cell Distribution Width 13.3 % (11.8-14.3); White Blood Cell 6.3 10^3/uL (4.4-10.8)
[2024-08-09 06:06] LABS: Albumin 3.9 g/dL (3.2-4.8); Alkaline Phosphatase 51 U/L (46-116); Anion Gap 10 (5-15); Aspartate Aminotransferase 37 U/L (13-40); BUN/Creatinine Ratio 10.9 (10.0-20.0); Bilirubin, Total 0.8 mg/dL (0.2-1.0); Calcium 8.7 mg/dL (8.7-10.4); Carbon Dioxide 22 mmol/L (20-31); Cholesterol 127 mg/dL (< 200); LDL Cholesterol 82 mg/dL (< 100); Potassium 3.9 mmol/L (3.5-5.1); Sodium 139 mmol/L (136-145); Total Protein 6.5 g/dL (5.7-8.2); Triglycerides 60 mg/dL (< 150)
[2024-08-09 06:13] LABS: Alanine Aminotransferase 58 U/L (7-40); Blood Urea Nitrogen 7 mg/dL (9-23); Chloride 107 mmol/L (98-107); Glucose 111 mg/dL (74-106); HDL Cholesterol 37 mg/dL (40-59)
[2024-08-09] MEDS: ASPirin 81 mg TAB PO SCH (08:12)
--- NOTE | 2024-08-09 15:50 | DVHDS2 ---
Discharge Summary Date of Admission Aug 08, 2024 at 16:41 Labs/Diagnostic Data: Laboratory Results Test 08/09/24 05:25 08/08/24 10:42 08/08/24 10:10 White Blood Count 6.3 10^3/uL (4.4-10.8) Red Blood Count 4.13 10^6/uL (4.0-5.20) Hemoglobin 12.8 g/dL (12.2-16.2) Hematocrit 37.2 % (36.0-46.0) Mean Corpuscular Volume 90.1 fL (80.0-100.0) Mean Corpuscular Hemoglobin 31.1 pg (28.0-32.0) Mean Corpuscular Hemoglobin Concent 34.5 g/dL (32.0-36.0) Red Cell Distribution Width 13.3 % (11.8-14.3) Platelet Count 232 10^3/uL (140-450) Mean Platelet Volume 8.1 fL (6.9-10.8) Neutrophils (%) (Auto) 57.4 % (37.0-80.0) Lymphocytes (%) (Auto) 26.3 % (10.0-50.0) Monocytes (%) (Auto) 8.6 % (0.0-12.0) Eosinophils (%) (Auto) 6.0 % (0.0-7.0) Basophils (%) (Auto) 1.7 % (0.0-2.0) Neutrophils # (Auto) 3.6 10 ^3/uL (1.6-8.6) Lymphocytes # (Auto) 1.7 10 ^3/uL (0.4-5.4) Monocytes # (Auto) 0.5 10 ^3/uL (0-1.3) Eosinophils # (Auto) 0.4 10 ^3/uL (0-0.8) Basophils # (Auto) 0.1 10 ^3/uL (0-0.2) Nucleated Red Blood Cells 0.1 % Sodium Level 139 mmol/L (136-145) Potassium Level 3.9 mmol/L (3.5-5.1) Chloride Level 107 mmol/L (98-107) Carbon Dioxide Level 22 mmol/L (20-31) Anion Gap 10 (5-15) Blood Urea Nitrogen 7 mg/dL (9-23) Creatinine 0.64 mg/dL (0.550-1.02) Glomerular Filtration Rate Calc 116 mL/min (>90) BUN/Creatinine Ratio 10.9 (10.0-20.0) Serum Glucose 111 mg/dL (74-106) Hemoglobin A1c 5.6 % A1C (<5.7) Calcium Level 8.7 mg/dL (8.7-10.4) Total Bilirubin 0.8 mg/dL (0.2-1.0) Aspartate Amino Transferase (AST) 37 U/L (13-40) Alanine Aminotransferase (ALT) 58 U/L (7-40) Alkaline Phosphatase 51 U/L (46-116) Total Protein 6.5 g/dL (5.7-8.2) Albumin 3.9 g/dL (3.2-4.8) Triglycerides Level 60 mg/dL (< 150) Cholesterol Level 127 mg/dL (< 200) LDL Cholesterol 82 mg/dL (< 100) HDL Cholesterol 37 mg/dL (40-59) Thyroid Stimulating Hormone (TSH) 1.67 uIU/mL (0.55-4.78) Troponin I High Sensitivity < 3 ng/L (</=34) Urine Color Light-yellow (Yellow) Urine Clarity Turbid (Clear) Urine pH 6.0 (5.0-9.0) Urine Specific [place] 1.012 (1.001-1.035) Urine Protein Negative (Negative) Urine Ketones 4+ (Negative) Urine Blood Negative /uL (Negative) Urine Nitrite Negative (Negative) Urine Bilirubin Negative (Negative) Urine Urobilinogen Normal mg/dL (Negative) Urine Leukocyte Esterase Negative /uL (Negative) Urine RBC 1 /hpf (0 - 4) Urine Microscopic WBC 1 /HPF (0-5) Urine Squamous Epithelial Cells Few /hpf (<5) Urine Bacteria None seen /hpf (None Seen) Urine Mucus Few (None Seen) Urine Glucose Normal mg/dL (Normal) Other Laboratory Tests 08/09/24 05:25 Final Diagnosis/Problems List Chest pain MS ruled out Morbid obesity class 1, diet weight reduction and exercise counseling Discharge Statement: "Patient was advised to return to the ER or call 911 if any headaches, dizziness, shortness of breath, chest pain, abdominal pain, bleeding, fevers, or worsening of medical condition. Patient was counseled about treatment plan, medications, possible side effects, patientverbalized understanding. All questions were answered to the best of my ability. This discharge took greater then 30 minutes in planning, reviewing documentation, counseling the patient, and discussing with other team members." ASSESSMENT ASSESSMENT Assessment STEFFANIE FRASER MD Aug 09, 2024 15:50
[2024-08-09] MEDS ORDERED: ASPI-543 PO (17:06)
[2024-08-10 01:00] VITALS: BP 93/53; PULSE 69; RESP 16; TEMP 98.3; O2SAT 100
[2024-08-10 05:00] VITALS: BP 110/61; PULSE 71; RESP 16; TEMP 98.4; O2SAT 99
--- NOTE | 2024-08-10 07:11 | ECG ---
[facility] Test Date: 2024-08-08 Test Time: 09:41:30 Pat Name: MICHEL BERNARDO Department: ER Room: [address] [place] [address] 3 Gender: F Super[employer]: ALMITA : 1985 Requested By: KATHE PATIÑO Order Number: [id number] Reading MD: Steven Amaya Measurements Intervals [place] Rate: 78 P: 60 [place]: 121 QRS: 67 QRSD: 98 T: 60 QT: 382 QTc: 436 Interpretive Statements Sinus rhythm RSR' in V1 or V2, right VCD or RVH Electronically Signed On 08-10-2024 18:40:57 PDT by Steven Amaya Please click the below link to view image of tracing.
[2024-08-10 08:00] VITALS: PULSE 78; PULSE 85; RESP 18; O2SAT 98
[2024-08-10 09:00] VITALS: BP 98/65; PULSE 73; RESP 16; TEMP 98.5; O2SAT 98
--- NOTE | 2024-08-10 12:36 | DVHSR ---
APPROVED REPORT EXAM: Two-dimensional and M-mode echocardiogram with Doppler and color Doppler. Blood Pressure: 121/59 mmHg INDICATION ACS RISK FACTORS Height: 5'2", Weight: 177 DIMENSIONS LVDd4.3 (3.8-5.7cm)LA (2D)3.6 (1.9-4.0cm)Aortic Root2.5 (2.0-3.7cm) LVDs2.7 (2.5-4.0cm)LA (MM) (1.9-4.0cm)Aortic Cusp Exc1.5 (1.5-2.0cm) EF (%) 67.0 (55-70%)Rt. Atrium3.4 (1.9-4.0cm)Asc. Aorta2.2 cm IVSd0.6 (0.7-1.1cm)RV (D)2.8 (1.8-2.4cm) PWd0.8 (0.7-1.1cm) Mitral Valve MitralMitral Stenosis E wave0.75m/sMV Mean GR.mmHg A wave0.53m/sMV Peak GR.mmHg E/A ratio1.42D MVAcm2 DECEL [id number] 1/2 Tim[place] Aortic Valve Aortic ValveAortic Stenosis V10.98m/Carlos Mean GR.4mmHg V21.47m/Carlos Peak GR.9mmHg LVOT Diameter1.9 (1.8-2.4cm)Doppler AVA1.89cm2 Pulmonic Valve V21.06m/s Tricuspid Valve TR Velocity2.25m/s [id number] Conclusion Technically good study. Sinus rhythm. Normal chamber dimensions. Valves appear to be structurally normal. Left ventricular systolic performance is preserved at 65% with normal RV function. Dopplers unremarkable. No pericardial effusion masses or vegetations discernible.
[2024-08-10] MEDS: ACETAMINOPHEN 325 MG TAB PO PRN (12:47)
[2024-08-10 13:00] VITALS: BP 106/66; PULSE 75; RESP 18; TEMP 97.7; O2SAT 97
[2024-08-10 15:44] VITALS: BP 126/80; PULSE 72; RESP 18; TEMP 98.7; O2SAT 97
--- NOTE | 2024-08-10 16:15 | DVHPN2 ---
Subjective I am assuming the care of the patient from today onwards. Patient was seen and evaluated by me. Currently waiting for 2D echo to be read to rule out structural heart disease. Patient's chest pain is noncardiac. Reviewed: Care Plan Changes from previous H/P or p: No Changes Eyes: No Pain, No Vision change, No Conjunctivae inflammation, No Eyelid inflammation, No Other, No Redness ENT: No Ear pain, No Ear discharge, No Nose pain, No Nose discharge, No Nose congestion, No Mouth pain, No Mouth swelling, No Throat pain, No Throat swelling, No Other Cardiovascular: Chest Pain (sharp pain), Palpitations; No Orthopnea, No Paroxysmal Noc. Dyspnea, No Edema, No Lt Headedness, No Other Respiratory: No Cough, No Dry; Shortness of breath; No SOB with excertion, No Wheezing, No Hemoptysis, No Pleuritic Pain, No Sputum, No Other Gastrointestinal: No Nausea, No Vomiting, No Abdominal Pain, No Diarrhea, No Constipation, No Melena, No Hematochezia, No Other Genitourinary: No Dysuria, No Frequency, No Incontinence, No Hematuria, No Retention, No Other Musculoskeletal: No other, No neck pain, No shoulder pain; arm pain (numbness/tingling); No back pain, No hand pain, No leg pain, No foot pain Skin: No Rash, No Lesions, No Jaundice, No Bruising, No Other Objective Vitals Vital Signs Date Time Temp Pulse Resp B/P (MAP) Pulse Ox O2 Delivery O2 Flow Rate FiO2 08/10/24 15:44 98.7 72 18 97 08/10/24 13:00 106/66 (79) 08/10/24 08:00 Room Air* 0 21 Intake/Output Intake and Output 08/10/24 07:00 Intake Total 1275 ml Balance 1275 ml Intake Oral 1275 ml # Voids 9 # Bowel Movements 1 Exam HEENT pupils are reactive Neck is supple CV is S1-S2 regular rate and rhythm Respiratory bilateral clear GI positive bowel sound Extremity no edema INTENSIVE CARE UNIT REGISTERED NURSE no motor deficit Medications Current Medications Medications Dose Ordered Sig/Renetta Route Start Time Stop Time Status Last Admin Dose Admin Acetaminophen/ Hydrocodone Bitart 1 tab Q4HP PRN PO 08/08/24 16:45 08/09/24 09:40 1 TAB Ondansetron HCl 4 mg Q4HP PRN IV 08/08/24 16:45 Docusate Sodium 100 mg BIDPRN PRN PO 08/08/24 16:45 Acetaminophen 650 mg Q6HP PRN PO 08/08/24 16:45 08/10/24 12:47 650 MG Nitroglycerin 0.4 mg Q5MINP PRN SL 08/08/24 16:45 Morphine Sulfate 2 mg Q30M PRN IV 08/08/24 16:45 Aspirin 81 mg DAILY PO 08/09/24 10:00 08/10/24 09:22 81 MG Atorvastatin Calcium 40 mg HS PO 08/08/24 22:00 08/09/24 22:41 40 MG Laboratory Results Laboratory Tests 08/09/24 05:25 Urinalysis Test 08/08/24 10:10 Urine Color Light-yellow (Yellow) Urine Clarity Turbid (Clear) H Urine pH 6.0 (5.0-9.0) Urine Specific [place] 1.012 (1.001-1.035) Urine Protein Negative (Negative) Urine Ketones 4+ (Negative) H Urine Blood Negative /uL (Negative) Urine Nitrite Negative (Negative) Urine Bilirubin Negative (Negative) Urine Urobilinogen Normal mg/dL (Negative) Urine Leukocyte Esterase Negative /uL (Negative) Urine RBC 1 /hpf (0 - 4) Urine Microscopic WBC 1 /HPF (0-5) Urine Squamous Epithelial Cells Few /hpf (<5) Urine Bacteria None seen /hpf (None Seen) Urine Mucus Few (None Seen) Urine Glucose Normal mg/dL (Normal) Assessment/Plan Assessment/Plan 39-year-old female who denies any anxiety disorder and panic attacks presented to the hospital with the chest pain and palpitation found to have 1. Chest pain rule out MD, currently waiting for 2D echo to be read by Cardiology to rule out any structural heart disease 2. Marijuana use 3. Morbid obesity class one, -patient's serial troponins are negative, 12 lead EKG shows no significant changes, we will follow up Cardiology and 2D echo results -plan of care discussed with the patient who understand and agreeable to plan. Plan discussed with: Patient, Other My Orders Orders - STEFFANIE FRASER MD Procedure Category Date Status Time Communication Order ORDERS 08/09/24 Transmitted 16:39 Discharge DISCHARGE 08/10/24 Transmitted 14:59 Date of Service: Aug 09, 2024 Billing Provider: STEFFANIE FRASER MD Common Visit Codes: [id number] INP/OBS CARE(MOD) STEFFANIE FRASER MD Aug 10, 2024 16:15
--- NOTE | 2024-08-10 16:26 | DVHDS2 ---
Discharge Summary Date of Admission Aug 08, 2024 at 16:41 Date of Discharge: Aug 10, 2024 Labs/Diagnostic Data: Laboratory Results Test 08/09/24 05:25 08/08/24 10:42 08/08/24 10:10 White Blood Count 6.3 10^3/uL (4.4-10.8) Red Blood Count 4.13 10^6/uL (4.0-5.20) Hemoglobin 12.8 g/dL (12.2-16.2) Hematocrit 37.2 % (36.0-46.0) Mean Corpuscular Volume 90.1 fL (80.0-100.0) Mean Corpuscular Hemoglobin 31.1 pg (28.0-32.0) Mean Corpuscular Hemoglobin Concent 34.5 g/dL (32.0-36.0) Red Cell Distribution Width 13.3 % (11.8-14.3) Platelet Count 232 10^3/uL (140-450) Mean Platelet Volume 8.1 fL (6.9-10.8) Neutrophils (%) (Auto) 57.4 % (37.0-80.0) Lymphocytes (%) (Auto) 26.3 % (10.0-50.0) Monocytes (%) (Auto) 8.6 % (0.0-12.0) Eosinophils (%) (Auto) 6.0 % (0.0-7.0) Basophils (%) (Auto) 1.7 % (0.0-2.0) Neutrophils # (Auto) 3.6 10 ^3/uL (1.6-8.6) Lymphocytes # (Auto) 1.7 10 ^3/uL (0.4-5.4) Monocytes # (Auto) 0.5 10 ^3/uL (0-1.3) Eosinophils # (Auto) 0.4 10 ^3/uL (0-0.8) Basophils # (Auto) 0.1 10 ^3/uL (0-0.2) Nucleated Red Blood Cells 0.1 % Sodium Level 139 mmol/L (136-145) Potassium Level 3.9 mmol/L (3.5-5.1) Chloride Level 107 mmol/L (98-107) Carbon Dioxide Level 22 mmol/L (20-31) Anion Gap 10 (5-15) Blood Urea Nitrogen 7 mg/dL (9-23) Creatinine 0.64 mg/dL (0.550-1.02) Glomerular Filtration Rate Calc 116 mL/min (>90) BUN/Creatinine Ratio 10.9 (10.0-20.0) Serum Glucose 111 mg/dL (74-106) Hemoglobin A1c 5.6 % A1C (<5.7) Calcium Level 8.7 mg/dL (8.7-10.4) Total Bilirubin 0.8 mg/dL (0.2-1.0) Aspartate Amino Transferase (AST) 37 U/L (13-40) Alanine Aminotransferase (ALT) 58 U/L (7-40) Alkaline Phosphatase 51 U/L (46-116) Total Protein 6.5 g/dL (5.7-8.2) Albumin 3.9 g/dL (3.2-4.8) Triglycerides Level 60 mg/dL (< 150) Cholesterol Level 127 mg/dL (< 200) LDL Cholesterol 82 mg/dL (< 100) HDL Cholesterol 37 mg/dL (40-59) Thyroid Stimulating Hormone (TSH) 1.67 uIU/mL (0.55-4.78) Troponin I High Sensitivity < 3 ng/L (</=34) Urine Color Light-yellow (Yellow) Urine Clarity Turbid (Clear) Urine pH 6.0 (5.0-9.0) Urine Specific [place] 1.012 (1.001-1.035) Urine Protein Negative (Negative) Urine Ketones 4+ (Negative) Urine Blood Negative /uL (Negative) Urine Nitrite Negative (Negative) Urine Bilirubin Negative (Negative) Urine Urobilinogen Normal mg/dL (Negative) Urine Leukocyte Esterase Negative /uL (Negative) Urine RBC 1 /hpf (0 - 4) Urine Microscopic WBC 1 /HPF (0-5) Urine Squamous Epithelial Cells Few /hpf (<5) Urine Bacteria None seen /hpf (None Seen) Urine Mucus Few (None Seen) Urine Glucose Normal mg/dL (Normal) Other Laboratory Tests 08/09/24 05:25 Brief Hx & Hospital Course: 79-year-old female who initially presented to the hospital with chest pain and palpitation for last three days. Patient described the chest pain is substernal sharp in nature radiating to bilateral upper extremity as well as some tingling numbness. Patient's chest pain is not provoked. Patient self-medicated with the aspirin for last two days with a known relief of symptoms. Patient was eventually monitored on telemetry cardiology was consulted. Patient's 12 lead EKG shows normal sinus rhythm serial troponins are negative. Patient did mentioned that she has a recent diagnosis of anxiety but not on any medication. I offered her anxiety medication patient refused to take it she wants to know what is wrong with the her. I explained to her in detail that your chest pain is musculoskeletal which examined in the presence of nurse Lily after taking permission from the patient. Patient is still not satisfied saying that she will go to some other hospital. I discussed in detail with the bedside RN Lily that make sure Cardiology come talk to her as there is no indication of any further workup at this point of time. Patient is mildly tender on the substernal examination I explained to her that this is not cardiac pain. I explained to the patient that 2D echo shows normal ejection fraction pumping ability of the heart and no diastolic dysfunction either. And there is no structural valvular abnormality. Condition at Discharge: Stable Final Diagnosis/Problems List 1.Chest pain PR ruled out, patient's chest pain is atypical/musculoskeletal pain 2. Morbid obesity class 1, 3. Suspected anxiety disorder, patient denies 4. Marijuana use 5. Hypercalcemia suspected secondary to dehydration currently calcium back to normal. Discharge Disposition: Home SNF Discharge Will this Physician continue t: No Discharge Instruct/Medications Diet: Cardiac 2g Na,low cholest Activity: No Restrictions, As Tolerated Follow Up/Referral: Follow up with PCP in 1-2 weeks Discharge Statement: "Patient was advised to return to the ER or call 911 if any headaches, dizziness, shortness of breath, chest pain, abdominal pain, bleeding, fevers, or worsening of medical condition. Patient was counseled about treatment plan, medications, possible side effects, patientverbalized understanding. All questions were answered to the best of my ability. This discharge took greater then 30 minutes in planning, reviewing documentation, counseling the patient, and discussing with other team members." ASSESSMENT ASSESSMENT Assessment 1.Chest pain PR ruled out, patient's chest pain is atypical/musculoskeletal pain 2. Morbid obesity class 1, 3. Suspected anxiety disorder, patient denies 4. Marijuana use 5. Hypercalcemia suspected secondary to dehydration currently calcium back to normal. Date of Service: Aug 10, 2024 Billing Provider: STEFFANIE FRASER MD Common Visit Codes: 40852-CBY/OBS DISCH DAY >30min STEFFANIE FRASER MD Aug 10, 2024 16:26
== END 2024-08-10 16:17 | disposition home or self-care (01) | DRG 203 ==
LOC: ER 09:35 → OVERFLOW 16:41 → TELE-EAST 21:30
PROVIDERS: ADMIT Internal Medicine; ATTEND Internal Medicine
DX: R07.89 Other chest pain (principal); E66.01 Morbid (severe) obesity due to excess calories; F12.90 Cannabis use, unspecified, uncomplicated; E83.52 Hypercalcemia; E86.0 Dehydration; F41.9 Anxiety disorder, unspecified; Z98.51 Tubal ligation status; Z98.891 History of uterine scar from previous surgery; Z83.3 Family history of diabetes mellitus; Z82.49 Family history of ischemic heart disease and other diseases of the circulatory system
CPT/HCPCS: 36415; 71045; 80048; 80053; 80061; 81001; 83036; 84443; 84484; 85025; 93005; 93306; 96361; 96374; 96375; 99291; G0378; J1885; J2405; J3490